=== PATIENT | female | born 1990 | race Caucasian/White ===

== ENCOUNTER 2019-01-28 23:03 | Emergency (ER) | payer OTHER ==
[~2019-01-28] VITALS: Ht 168.9 cm; Wt 110.9 kg
[2019-01-28] MEDS ORDERED: LEVE250T55 PO (23:20)
[2019-01-28] MEDS ORDERED: THIO50 PO (23:20)
[2019-01-28] MEDS ORDERED: DIVA250T45 PO (23:20)
[2019-01-29] MEDS ORDERED: CEPHALEXIN MONOHYDRATE 500 MG CAPSULE PO ONE (01:15)
[2019-01-29] MEDS ORDERED: TraMADol HCL 50 MG TABLET PO ONE (01:15)
[2019-01-29] MEDS ORDERED: SULFAMETHOX/TRIMETH DS 800-160 MG/TABLET PO ONE (01:15)
[2019-01-29] MEDS ORDERED: LIDOCAINE 1%/EPI 1:200,000/PF 10 ML VIAL INJ ONE (02:30)
[2019-01-29 02:45] VITALS: BP 125/75
== END 2019-01-29 03:21 | disposition home or self-care (01) ==
LOC: EMS 23:06
DX: L02.211 Cutaneous abscess of abdominal wall (principal); F84.0 Autistic disorder
CPT/HCPCS: 10060; 99284; J3490